=== PATIENT | male | born 1965 | race Asian ===

== ENCOUNTER 2025-08-14 10:26 | Outpatient (CLI) | payer SELFPAY | END 2025-08-14 10:27 | disposition home or self-care (01) | LOC: CSHCT 10:26 | PROVIDERS: ATTEND Family Medicine | DX: E78.5 Hyperlipidemia, unspecified (principal); I25.10 Atherosclerotic heart disease of native coronary artery without angina pectoris | CPT/HCPCS: 75571 ==